=== PATIENT | male | born 1970 | race Two or more races ===

== ENCOUNTER 2019-10-29 10:41 | Emergency (ER) | payer MEDICAID ==
[~2019-10-29] VITALS: Ht 182.9 cm; Wt 95.3 kg
[~2019-10-29 10:41] MED LIST: ATENPOW10; LISIPOW; METF-370
[2019-10-29 10:42] VITALS: BP 123/96
[2019-10-29] MEDS ORDERED: ACETAMINOPHEN 500 MG TAB PO ONE (11:00)
== END 2019-10-29 14:30 | disposition home or self-care (01) ==
LOC: ER 10:41
DX: U07.1 COVID-19 (principal); B34.9 Viral infection, unspecified; J40 Bronchitis, not specified as acute or chronic
CPT/HCPCS: 36415; 71045; 87426; 99284; U0003; 93005

== ENCOUNTER 2019-11-03 22:02 | Inpatient (IN) | payer MEDICAID ==
[~2019-11-03] VITALS: Ht 182.9 cm; Wt 115.0 kg
[2019-11-04] MEDS ORDERED: DexAMETHasone SOD PHOS 10MG/1ML VIAL INJ IV ONE (01:30)
[2019-11-04] MEDS ORDERED: SODIUM CHLORIDE 0.9% 1,000 ML IV ONE (01:30)
[2019-11-04 01:56] LABS: Basophils # (auto) 0 10 ^3/uL (0-0.2); Eosinophils # (auto) 0 10 ^3/uL (0-0.8); Eosinophils % (auto) 0.1 % (0.0-7.0); Hematocrit 41.8 % (41.0-53.0); Hemoglobin 14.8 g/dL (13.5-17.5); Lymphocytes # (auto) 1.7 10 ^3/uL (0.4-5.4); Lymphocytes % (auto) 21.4 % (10.0-50.0); Mean Corpuscular Hemoglobin 30.9 pg (28.0-32.0); Mean Corpuscular Hgb Conc. 35.4 g/dL (32.0-36.0); Mean Corpuscular Volume 87.4 fL (80.0-100.0); Monocytes # (auto) 0.9 10 ^3/uL (0-1.3); Monocytes % (auto) 10.7 % (0.0-12.0); Neutrophils # (auto) 5.5 10 ^3/uL (1.6-8.6); Neutrophils % (auto) 67.8 % (37.0-80.0); Nucleated Red Blood Cells % 0.1 %; Platelet Count (auto) 233 10^3/uL (140-450); Red Blood Cells 4.78 10^6/uL (4.5-5.90); Red Cell Distribution Width 12.7 % (11.8-14.3); White Blood Cell 8.1 10^3/uL (4.4-10.8)
[2019-11-04 02:12] LABS: INR 0.96 (0.9-1.15); Partial Thromboplastin Time 24.8 sec (23.0-31.2)
[2019-11-04 02:14] LABS: Alanine Aminotransferase 47 U/L (16-61); Anion Gap 8 (5-15); Aspartate Aminotransferase 27 U/L (15-37); Blood Urea Nitrogen 18 mg/dL (7-18); Calcium 8.5 mg/dL (8.5-10.1); Carbon Dioxide 25 mmol/L (21-32); Chloride 98 mmol/L (98-107); GFR African American 130 mL/min; GFR Non-African American 107 mL/min; Glucose 199 mg/dL (74-106); Potassium 3.8 mmol/L (3.5-5.1); Sodium 131 mmol/L (136-145)
[2019-11-04 02:19] LABS: Alkaline Phosphatase 62 U/L (45-117); Bilirubin, Total 0.6 mg/dL (0.2-1.0); Total Protein 7.4 g/dL (6.4-8.2)
[2019-11-04] MEDS ORDERED: DOXYCYCLINE 100MG/250ML 250 ML IV ONE (04:00)
[2019-11-04] MEDS ORDERED: ACETAMINOPHEN 500 MG TAB PO PRN (05:45)
[2019-11-04] MEDS ORDERED: HYDROcodone-ACET 5/325MG TAB PO PRN (05:45)
[2019-11-04] MEDS ORDERED: ACETAMINOPHEN 325 MG TAB PO PRN (05:45)
[2019-11-04] MEDS ORDERED: LORazepam 0.5 MG TAB PO PRN (05:45)
[2019-11-04] MEDS ORDERED: ONDANSETRON HCL 4 MG/2 ML VIAL IV PRN (05:45)
[2019-11-04] MEDS ORDERED: MORPHINE SULF INJ 2 MG/ML SYRINGE 1ML IV PRN (05:45)
[2019-11-04] MEDS ORDERED: DOCUSATE SOD 100 MG CAP PO PRN (05:45)
[2019-11-04] MEDS ORDERED: TEMAZEPAM 15 MG CAP PO PRN (05:45)
[2019-11-04 06:08] VITALS: BP 141/85
[2019-11-04] MEDS: SODIUM CHLORIDE 0.9% 1,000 ML IV SCH ×2 (06:26→10:26)
[2019-11-04] MEDS: ALBUTEROL SULF HFA 90MCG INH 200DOSE IN SCH ×3 (07:48→22:21)
--- NOTE | 2019-11-04 07:50 | NUR ---
Admit from ER MARTINEZ,GEOVANI admitted to floor from ER. Patient oriented to MAYRA DIAZ RN primary RN, unit, room, bed, and unit policies regarding patient care and visiting hours. Patient placed on bedside oxygen at 2L, weighed by bedscale and encouraged to call if they need something. All questions and concerns addressed, patient verbalized understanding. Patient VS: 98.0, 68, 20, 95%, 132/81. No complaints of pain or discomfort at this time.
[2019-11-04 09:00] VITALS: BP 132/81
--- NOTE | 2019-11-04 09:14 | NUR ---
ADMISSION ASSESSMENT PATIENT IS ISOLATED IN COVID UNIT. ATTEMPTED TO OBTAIN ADMISSION ASSESSMENT REMOTELY. BEGAN TO SPEAK TO PATIENT ON PORTABLE PHONE AND WAS DISCONNECTED. UNABLE TO REACH PATIENT ON PORTABLE AT THIS TIME. WILL ATTEMPT AGAIN. Addendum: 11/04/19 at 0948 by Jasmyn Jane RN SPOKE WITH PRIMARY CHHAYA NUNEZ AND OBTAINED PATIENTS CELL PHONE NUMBER. ATTEMPTED TO CONTACT PATIENT ON HIS CELL PHONE AT . SENT TO [facility]. LEFT MESSAGE WITH RETURN CONTACT INFORMATION. AWAITING CALL BACK. Addendum: 11/04/19 at 1024 by Jasmyn Jane RN RECEIVED CALL FROM PATIENT. OBTAINED ADMISSION ASSESSMENT FROM PATIENT OVER THE PHONE. PRIMARY CHHAYA NUNEZ NOTIFIED TO COMPLETE ADMISSION.
[2019-11-04] MEDS ORDERED: LISI-646 PO (10:18)
[2019-11-04] MEDS ORDERED: GLIP10TA9 PO (10:18)
[2019-11-04] MEDS ORDERED: ATEN100T PO (10:18)
[2019-11-04] MEDS ORDERED: METF-370 PO (10:18)
[2019-11-04] MEDS: ZINC SULFATE 220mg CAP or TAB PO SCH (10:26)
[2019-11-04] MEDS: DexAMETHasone SOD PHOS 10MG/1ML VIAL INJ IV SCH (10:26)
[2019-11-04] MEDS: ASCORBIC ACID 1,000 MG TAB PO SCH (10:26)
[2019-11-04] MEDS: DOXYCYCLINE 100 MG TAB/CAP PO SCH ×2 (10:26→21:35)
[2019-11-04] MEDS: ENOXAPARIN SOD 40 MG/0.4 ML SYRINGE SC SCH (10:27)
--- NOTE | 2019-11-04 10:40 | NUR ---
Dr Parker bedside with patient discussing plan of care. Orders received and carried out.
[2019-11-04] MEDS ORDERED: DEXTROSE (50%) 50ML SYRG IV PRN (10:45)
[2019-11-04 10:52] LABS: Basophils # (auto) 0 10 ^3/uL (0-0.2); Basophils % (auto) 0.1 % (0.0-2.0); Eosinophils # (auto) 0 10 ^3/uL (0-0.8); Hemoglobin 14.9 g/dL (13.5-17.5); Lymphocytes # (auto) 0.7 10 ^3/uL (0.4-5.4); Lymphocytes % (auto) 10.8 % (10.0-50.0); Mean Corpuscular Hemoglobin 30.7 pg (28.0-32.0); Mean Corpuscular Hgb Conc. 34.7 g/dL (32.0-36.0); Mean Corpuscular Volume 88.6 fL (80.0-100.0); Monocytes # (auto) 0.3 10 ^3/uL (0-1.3); Monocytes % (auto) 4.5 % (0.0-12.0); Neutrophils # (auto) 5.3 10 ^3/uL (1.6-8.6); Neutrophils % (auto) 84.6 % (37.0-80.0); Nucleated Red Blood Cells % 0.1 %; Platelet Count (auto) 236 10^3/uL (140-450); Red Blood Cells 4.85 10^6/uL (4.5-5.90); Red Cell Distribution Width 12.7 % (11.8-14.3); White Blood Cell 6.3 10^3/uL (4.4-10.8)
[2019-11-04 11:11] LABS: Calcium 8.7 mg/dL (8.5-10.1); Magnesium 2.3 mg/dL (1.6-2.6); Potassium 4.3 mmol/L (3.5-5.1)
[2019-11-04 11:14] LABS: BUN/Creatinine Ratio 21.4
[2019-11-04] MEDS: InsuLIN REG 1unit/0.01ml Soln (100units/ml) SC SCH ×3 (11:53→21:36)
[2019-11-04] MEDS: ACCU-CHEK COMFORT CURVE STRIP VI SCH ×3 (11:54→21:28)
--- NOTE | 2019-11-04 11:55 | NUR ---
Patient moved from room 244-7 to room 248A to share room with daughter. help desk supervisor, Yvonne, approved transfer.
[2019-11-04 13:00] VITALS: BP 131/90
[2019-11-04 17:00] VITALS: BP 138/94
--- NOTE | 2019-11-04 19:40 | NUR ---
Opening Shift Note Assumed care of patient, awake and alert. No S/S of distress/SOB or pain. POC discussed and questions answered. Bed is locked in lowest position with side rails up x2 for safety, call light is within reach and encouraged to call for assistance PRN, will continue to monitor for changes Q1hr and PRN.
[2019-11-04 22:00] VITALS: BP 147/95
[2019-11-05] MEDS: SODIUM CHLORIDE 0.9% 1,000 ML IV SCH (04:48)
[2019-11-05 05:00] VITALS: BP 148/97
[2019-11-05] MEDS: glipiZIDE 5 MG TAB PO SCH (06:56)
[2019-11-05] MEDS: ACCU-CHEK COMFORT CURVE STRIP VI SCH ×4 (06:56→21:45)
[2019-11-05] MEDS: InsuLIN REG 1unit/0.01ml Soln (100units/ml) SC SCH ×4 (06:57→21:45)
--- NOTE | 2019-11-05 08:06 | NUR ---
OPENING SHIFT NOTE Assumed care of patient. PT is awake and a&ox4. No SOB or s/s of distress at this time. Instructed on plan of care and encouraged patient to call for assistance as needed, patient verbalized understanding. Bed is locked in lowest position, side rails x 2 are up, call light is within reach, and bed alarm is on.
[2019-11-05] MEDS: ALBUTEROL SULF HFA 90MCG INH 200DOSE IN SCH ×3 (08:27→22:38)
[2019-11-05 09:00] VITALS: BP 143/91
[2019-11-05 09:07] LABS: Basophils # (auto) 0 10 ^3/uL (0-0.2); Eosinophils # (auto) 0 10 ^3/uL (0-0.8); Eosinophils % (auto) 0.1 % (0.0-7.0); Hematocrit 40.7 % (41.0-53.0); Lymphocytes # (auto) 1.4 10 ^3/uL (0.4-5.4); Lymphocytes % (auto) 22.6 % (10.0-50.0); Mean Corpuscular Hemoglobin 30.2 pg (28.0-32.0); Mean Corpuscular Hgb Conc. 34.3 g/dL (32.0-36.0); Monocytes # (auto) 0.5 10 ^3/uL (0-1.3); Neutrophils # (auto) 4.1 10 ^3/uL (1.6-8.6); Neutrophils % (auto) 68.3 % (37.0-80.0); Nucleated Red Blood Cells % 0.1 %; Platelet Count (auto) 264 10^3/uL (140-450); Red Blood Cells 4.62 10^6/uL (4.5-5.90); Red Cell Distribution Width 12.6 % (11.8-14.3)
[2019-11-05 09:34] LABS: Albumin 2.7 g/dL (3.4-5.0); Calcium 8.4 mg/dL (8.5-10.1); Potassium 3.8 mmol/L (3.5-5.1)
[2019-11-05 09:39] LABS: BUN/Creatinine Ratio 22.4; Bilirubin, Total 0.5 mg/dL (0.2-1.0); Total Protein 6.7 g/dL (6.4-8.2)
[2019-11-05] MEDS: ENOXAPARIN SOD 40 MG/0.4 ML SYRINGE SC SCH (11:21)
[2019-11-05] MEDS: ASCORBIC ACID 1,000 MG TAB PO SCH (11:21)
[2019-11-05] MEDS: ZINC SULFATE 220mg CAP or TAB PO SCH (11:21)
[2019-11-05] MEDS: DOXYCYCLINE 100 MG TAB/CAP PO SCH ×2 (11:21→21:26)
[2019-11-05] MEDS: DexAMETHasone SOD PHOS 10MG/1ML VIAL INJ IV SCH (11:22)
[2019-11-05 13:00] VITALS: BP 151/99
[2019-11-05 17:00] VITALS: BP 136/87
--- NOTE | 2019-11-05 19:48 | NUR ---
Opening Shift Note Assumed care of patient, awake and alert. No S/S of distress/SOB or pain. Instructed on POC and to call for assist PRN, will continue to monitor for changes Q1hr and PRN.
[2019-11-05 22:00] VITALS: BP 141/98
--- NOTE | 2019-11-05 22:40 | NUR ---
AT BEDSIDE FOR JACOB DIANE. PT IS [employer], PT STATES HE BELIEVES HIS BLOOD PRESSURE IS HIGH. PT STATED SINCE HE CAME HERE TO THE HOSPITAL HE HAS NOT BEEN TAKING HIS HOME BLOOD PRESSURE MEDS. CHHAYA WOODS COMMUNICATED ON PTS CONCERNS.
--- NOTE | 2019-11-05 23:00 | NUR ---
HOSPITALIST PAGED PATIENT STATES THAT THEY HAVE ELEVATED BP AND NORMALLY TAKE HOME MEDS FOR BP. NO NEW ORDERS RECEIVED AT THIS TIME. WILL CONTINUE TO MONITOR.
--- NOTE | 2019-11-05 23:44 | NUR ---
LATEST BP 147/93. WILL CONTINUE TO MONITOR.
[2019-11-06] MEDS ORDERED: LISINOPRIL 20 MG TAB PO ONE (04:30)
--- NOTE | 2019-11-06 04:38 | NUR ---
BP ELEVATED AT 169/107 ORDERS RECEIVED FROM HOSPITALIST. WILL CONTINUE TO MONITOR.
[2019-11-06 05:00] VITALS: BP 169/107
[2019-11-06] MEDS: InsuLIN REG 1unit/0.01ml Soln (100units/ml) SC SCH ×3 (06:09→16:56)
[2019-11-06 06:23] VITALS: BP 159/103
[2019-11-06] MEDS: glipiZIDE 5 MG TAB PO SCH (06:34)
[2019-11-06] MEDS: ACCU-CHEK COMFORT CURVE STRIP VI SCH ×3 (06:34→16:56)
--- NOTE | 2019-11-06 07:35 | NUR ---
OPENING NOTE ASSUMED CARE OF PT. ALERT AND ORIENTED. NO S/S OF SOB/DISTRESS NOTED. BED SET TO LOWEST POSITION/LOCKED. BEDSIDE RAILS UP X2. CALL LIGHT WITHIN REACH. INSTRUCTED PT TO CALL FOR ASSISTANCE. UPDATED PT ON POC. PT VERBALIZED UNDERSTANDING. WILL CONTINUE TO MONITOR Q1HR AND PRN.
[2019-11-06] MEDS: ALBUTEROL SULF HFA 90MCG INH 200DOSE IN SCH ×2 (07:40→14:52)
[2019-11-06 09:00] VITALS: BP 144/99
[2019-11-06] MEDS: DexAMETHasone SOD PHOS 10MG/1ML VIAL INJ IV SCH (09:13)
[2019-11-06] MEDS: ZINC SULFATE 220mg CAP or TAB PO SCH (09:13)
[2019-11-06] MEDS: DOXYCYCLINE 100 MG TAB/CAP PO SCH (09:14)
[2019-11-06] MEDS: ASCORBIC ACID 1,000 MG TAB PO SCH (09:14)
[2019-11-06] MEDS: ENOXAPARIN SOD 40 MG/0.4 ML SYRINGE SC SCH (09:15)
[2019-11-06] MEDS: SODIUM CHLORIDE 0.9% 1,000 ML IV SCH (09:21)
[2019-11-06] MEDS ORDERED: ATENOLOL 50 MG TAB PO SCH (10:00)
[2019-11-06] MEDS ORDERED: LISINOPRIL 20 MG TAB PO SCH (10:00)
[2019-11-06 13:00] VITALS: BP 150/103
[2019-11-06] MEDS ORDERED: hydrALAZINE HCL 20 MG/ML VL IV PRN (13:30)
[2019-11-06] MEDS ORDERED: hydrALAZINE HCL 20 MG/ML VL IV ONE (13:30)
[2019-11-06] MEDS ORDERED: hydrALAZINE HCL 25 MG TAB PO ONE (14:00)
[2019-11-06] MEDS ORDERED: hydrALAZINE HCL 25 MG TAB PO PRN (14:00)
[2019-11-06] MEDS ORDERED: CHOL400T19 PO (14:44)
[2019-11-06] MEDS ORDERED: ASCO10003 PO (14:44)
[2019-11-06] MEDS ORDERED: ZINCCAP PO ×2 (14:44→14:45)
[2019-11-06] MEDS ORDERED: METH4PAK PO (14:44)
[2019-11-06] MEDS ORDERED: AZIT250T8 PO (14:44)
[2019-11-06] MEDS ORDERED: HYDR-2691 PO (14:44)
[2019-11-06] MEDS ORDERED: DOX100T PO (14:45)
[2019-11-06 16:12] VITALS: BP 150/103
[2019-11-06 17:00] VITALS: BP 118/83
--- NOTE | 2019-11-06 17:35 | NUR ---
Discharge Discharge instructions given as ordered. Encourage to follow up with PMD as instructed. All questions and concerns addressed. Patient verbalized understanding. Prescriptions given to patient. IV removed with catheter intact, pressure dressing applied. Patient walked to vehicle with all personal belongings, accompanied by staff and family member. No distress noted at time of departure.
== END 2019-11-06 17:38 | disposition home or self-care (01) | DRG 137 ==
LOC: ER 22:02 → OVERFLOW 22:03 → TELE-E-ADS 11-04 08:53 → EAST 11-04 11:50
PROVIDERS: ADMIT Hospitalist; ATTEND Internal Medicine
DX: U07.1 COVID-19 (principal); J12.89 Other viral pneumonia; I10 Essential (primary) hypertension; J96.00 Acute respiratory failure, unspecified whether with hypoxia or hypercapnia; E44.0 Moderate protein-calorie malnutrition; F17.210 Nicotine dependence, cigarettes, uncomplicated; E78.5 Hyperlipidemia, unspecified; E11.9 Type 2 diabetes mellitus without complications; Z90.49 Acquired absence of other specified parts of digestive tract; Z68.38 Body mass index [BMI] 38.0-38.9, adult
CPT/HCPCS: 36415; 71045; 80048; 80053; 80061; 82962; 83036; 83605; 83735; 83880; 84484; 85025; 85379; 85610; 85730; 94640; 96361; 96365; 96375; G0378; J1100; J1815; J3490

== ENCOUNTER 2021-06-15 12:36 | Inpatient (IN) | payer MEDICAID ==
[~2021-06-15] VITALS: Ht 182.9 cm; Wt 112.1 kg
[~2021-06-15 12:36] MED LIST changes: +ASCO10003 PO; +ATEN100T PO; -ATENPOW10; +CHOL400T19 PO; +DOX100T PO; +GLIP10TA9 PO; +HYDR25TA87 PO; +LISI20TA28 PO; -LISIPOW; -METF-370; +METF-370 PO; +METH4PAK PO; +ZINCCAP PO
[2021-06-15] MEDS ORDERED: ASPirin 81 mg TAB PO ONE (12:45)
[2021-06-15 13:39] LABS: Urine Bacteria NONE SEEN /hpf (None Seen); Urine Blood Negative /uL (Negative); Urine Specific Gravity 1.033 (1.001-1.035); Urine WBC <1 /hpf (0 - 3)
[2021-06-15 14:00] LABS: Alcohol, Urine < 3.0 mg/dL (0-10); Amphetamine Screen, Urine NEGATIVE (NEGATIVE); Barbiturate Scree,Urine NEGATIVE (NEGATIVE); Benzodiazephine Screen, Urine NEGATIVE (NEGATIVE); Cannabinoid Screen, Urine NEGATIVE (NEGATIVE); Cocaine Screen, Urine NEGATIVE (NEGATIVE); Opiate Scree,Urine NEGATIVE (NEGATIVE); Phencyclidine Screen, Urine NEGATIVE (NEGATIVE)
[2021-06-15 14:08] LABS: Basophils # (auto) 0.1 10 ^3/uL (0-0.2); Basophils % (auto) 0.8 % (0.0-2.0); Eosinophils # (auto) 0.4 10 ^3/uL (0-0.8); Eosinophils % (auto) 4.9 % (0.0-7.0); Hematocrit 46.5 % (41.0-53.0); Hemoglobin 16.3 g/dL (13.5-17.5); Lymphocytes # (auto) 2.8 10 ^3/uL (0.4-5.4); Lymphocytes % (auto) 38.1 % (10.0-50.0); Mean Corpuscular Hemoglobin 31.1 pg (28.0-32.0); Mean Corpuscular Volume 88.8 fL (80.0-100.0); Monocytes # (auto) 0.6 10 ^3/uL (0-1.3); Monocytes % (auto) 8.2 % (0.0-12.0); Neutrophils # (auto) 3.5 10 ^3/uL (1.6-8.6); Nucleated Red Blood Cells % 0.2 %; Red Blood Cells 5.24 10^6/uL (4.5-5.90); Red Cell Distribution Width 12.9 % (11.8-14.3); White Blood Cell 7.3 10^3/uL (4.4-10.8)
[2021-06-15 14:27] LABS: Potassium 4.6 mmol/L (3.5-5.1)
[2021-06-15 14:35] LABS: Albumin 3.7 g/dL (3.4-5.0); BUN/Creatinine Ratio 14.3; Bilirubin, Total 0.3 mg/dL (0.2-1.0); Calcium 9.6 mg/dL (8.5-10.1); Total Protein 7.8 g/dL (6.4-8.2)
[2021-06-15] MEDS ORDERED: DEXTROSE (50%) 50ML SYRG IV PRN (16:30)
[2021-06-15] MEDS ORDERED: NITROGLYCERIN 0.4 MG SL TAB SL PRN (16:30)
[2021-06-15] MEDS ORDERED: MORPHINE SULFATE INJECTION 2 MG/ML SYRG IV PRN ×2 (16:30→21:30)
[2021-06-15] MEDS: ACCU-CHEK COMFORT CURVE STRIP VI SCH ×2 (17:55→22:43)
[2021-06-15] MEDS: InsuLIN REG 1unit/0.01ml Soln (100units/ml) SC SCH ×2 (18:03→22:44)
[2021-06-15] MEDS ORDERED: IOHEXOL 350 MG/ML 100ML IJ ONE ×2 (21:29→21:30)
[2021-06-15] MEDS ORDERED: ONDANSETRON HCL 4 MG/2 ML VIAL IV PRN (21:30)
[2021-06-15] MEDS ORDERED: SODIUM CHLORIDE 0.9% 1,000 ML IV SCH (21:30)
[2021-06-15] MEDS ORDERED: hydrALAZINE HCL 20 MG/ML VL IV PRN (21:30)
[2021-06-15] MEDS ORDERED: FAMOTIDINE (10MG/ML) 2ML VL IV ONE (21:30)
[2021-06-15] MEDS ORDERED: LORazepam 0.5 MG TAB PO PRN (21:30)
[2021-06-15] MEDS ORDERED: ACETAMINOPHEN 325 MG TAB PO PRN (21:30)
[2021-06-15] MEDS ORDERED: BENAZEPRIL HCL 10 MG TAB PO ONE (21:30)
[2021-06-15] MEDS ORDERED: HYDROcodone-ACET 5/325MG TAB PO ONE (21:30)
[2021-06-15] MEDS ORDERED: IPRATROPIUM BROM 0.5 MG/2.5ML INH SOL NEB ONE (21:30)
[2021-06-15] MEDS ORDERED: LACTULOSE 20Gm/30ML SOLN PO PRN (21:30)
[2021-06-15] MEDS ORDERED: HYDROcodone-ACET 5/325MG TAB PO PRN (21:30)
[2021-06-15] MEDS ORDERED: DOCUSATE SOD 100 MG CAP PO PRN (21:30)
[2021-06-15 22:30] VITALS: BP 126/87
[2021-06-15] MEDS: ATORVASTATIN 20 MG TAB PO SCH (22:42)
[2021-06-15 22:44] LABS: Magnesium 1.7 mg/dL (1.6-2.6); Phosphorus 3.6 mg/dL (2.5-4.90)
[2021-06-15] MEDS: INSULIN LANTUS (GLARGINE) 1 /0.01ml (100units/ml) SC SCH (22:45)
[2021-06-15 23:14] LABS: INR 0.99 (0.9-1.15); Partial Thromboplastin Time 23.9 sec (23.6-33.0)
[2021-06-16] MEDS ORDERED: IPRATROPIUM BROM 0.5 MG/2.5ML INH SOL NEB SCH (02:00)
[2021-06-16] MEDS ORDERED: IPRATROPIUM BROM 0.5 MG/2.5ML INH SOL NEB PRN (02:00)
[2021-06-16 05:45] LABS: Basophils # (auto) 0.1 10 ^3/uL (0-0.2); Basophils % (auto) 0.8 % (0.0-2.0); Eosinophils # (auto) 0.4 10 ^3/uL (0-0.8); Eosinophils % (auto) 5.6 % (0.0-7.0); Hematocrit 42.4 % (41.0-53.0); Lymphocytes # (auto) 3.2 10 ^3/uL (0.4-5.4); Lymphocytes % (auto) 45.8 % (10.0-50.0); Mean Corpuscular Hemoglobin 31.3 pg (28.0-32.0); Mean Corpuscular Hgb Conc. 35.3 g/dL (32.0-36.0); Mean Corpuscular Volume 88.7 fL (80.0-100.0); Monocytes # (auto) 0.6 10 ^3/uL (0-1.3); Monocytes % (auto) 8.9 % (0.0-12.0); Neutrophils # (auto) 2.7 10 ^3/uL (1.6-8.6); Neutrophils % (auto) 38.9 % (37.0-80.0); Nucleated Red Blood Cells % 0.1 %; Red Blood Cells 4.78 10^6/uL (4.5-5.90); Red Cell Distribution Width 12.9 % (11.8-14.3)
[2021-06-16 05:54] LABS: INR 0.99 (0.9-1.15); Partial Thromboplastin Time 24.1 sec (23.6-33.0)
[2021-06-16 05:55] LABS: Magnesium 1.8 mg/dL (1.6-2.6)
[2021-06-16 06:03] LABS: Albumin 3.2 g/dL (3.4-5.0); BUN/Creatinine Ratio 18.9; Bilirubin, Total 0.4 mg/dL (0.2-1.0); CRP High Sensitivity 0.06 mg/dL (< 0.3); Calcium 8.9 mg/dL (8.5-10.1); Phosphorus 3.8 mg/dL (2.5-4.90); Uric Acid 5.6 mg/dL (3.5-7.2)
[2021-06-16 06:07] LABS: Thyroid Stimulating Hormone 1.59 uIU/mL (0.358-3.74)
[2021-06-16] MEDS: InsuLIN REG 1unit/0.01ml Soln (100units/ml) SC SCH ×4 (06:46→22:43)
[2021-06-16] MEDS: ACCU-CHEK COMFORT CURVE STRIP VI SCH ×4 (06:48→22:42)
[2021-06-16] MEDS: INSULIN LANTUS (GLARGINE) 1 /0.01ml (100units/ml) SC SCH ×2 (06:48→22:42)
[2021-06-16] MEDS: ENOXAPARIN SOD 40 MG/0.4 ML SYRINGE SC SCH (11:24)
[2021-06-16] MEDS: ASPirin 81 mg TAB PO SCH (11:24)
[2021-06-16] MEDS: FAMOTIDINE (10MG/ML) 2ML VL IV SCH (11:24)
[2021-06-16] MEDS: BENAZEPRIL HCL 10 MG TAB PO SCH (11:25)
[2021-06-16 13:51] VITALS: BP 123/92
[2021-06-16 14:00] VITALS: BP 133/95
[2021-06-16 16:47] VITALS: BP 133/95
[2021-06-16] MEDS ORDERED: AMOX500C2 PO (20:53)
[2021-06-16 22:00] VITALS: BP 139/99
[2021-06-16] MEDS: ATORVASTATIN 20 MG TAB PO SCH (22:41)
[2021-06-17 05:00] VITALS: BP 140/99
[2021-06-17] MEDS: ACCU-CHEK COMFORT CURVE STRIP VI SCH ×3 (06:34→16:51)
[2021-06-17] MEDS: InsuLIN REG 1unit/0.01ml Soln (100units/ml) SC SCH ×3 (06:35→17:10)
[2021-06-17] MEDS: INSULIN LANTUS (GLARGINE) 1 /0.01ml (100units/ml) SC SCH (06:35)
[2021-06-17 09:00] VITALS: BP 129/94
[2021-06-17 09:01] VITALS: BP 159/113
[2021-06-17] MEDS: FAMOTIDINE (10MG/ML) 2ML VL IV SCH (10:26)
[2021-06-17] MEDS: ASPirin 81 mg TAB PO SCH (10:26)
[2021-06-17] MEDS: ENOXAPARIN SOD 40 MG/0.4 ML SYRINGE SC SCH (10:26)
[2021-06-17] MEDS: BENAZEPRIL HCL 10 MG TAB PO SCH (10:26)
[2021-06-17 13:33] VITALS: BP 123/73
[2021-06-17] MEDS ORDERED: METF-370 PO (15:59)
[2021-06-17] MEDS ORDERED: ATOR20TA50 PO (15:59)
[2021-06-17] MEDS ORDERED: GLIP10TA9 PO (15:59)
[2021-06-17] MEDS ORDERED: LISI20TA28 PO (15:59)
[2021-06-17] MEDS ORDERED: ASPI1CHW15 PO (15:59)
[2021-06-17 17:00] VITALS: BP 143/92
== END 2021-06-17 18:21 | disposition home or self-care (01) | DRG 203 ==
LOC: ER 12:36 → TELE 16:27 → TELE-EAST 06-16 10:22
PROVIDERS: ADMIT Hospitalist; ATTEND Internal Medicine
DX: R07.9 Chest pain, unspecified (principal); U09.9 Post COVID-19 condition, unspecified; E11.65 Type 2 diabetes mellitus with hyperglycemia; E66.01 Morbid (severe) obesity due to excess calories; E78.5 Hyperlipidemia, unspecified; F17.210 Nicotine dependence, cigarettes, uncomplicated; F41.9 Anxiety disorder, unspecified; I10 Essential (primary) hypertension; Z79.84 Long term (current) use of oral hypoglycemic drugs; Z82.49 Family history of ischemic heart disease and other diseases of the circulatory system; Z87.01 Personal history of pneumonia (recurrent); Z68.33 Body mass index [BMI] 33.0-33.9, adult; Z83.3 Family history of diabetes mellitus; Z79.899 Other long term (current) drug therapy; Z90.49 Acquired absence of other specified parts of digestive tract
CPT/HCPCS: 36415; 71046; 71275; 78452; 80053; 80061; 80307; 81001; 82550; 82728; 82962; 83036; 83615; 83690; 83735; 83880; 84100; 84443; 84484; 84550; 85025; 85379; 85610; 85652; 85730; 86141; 87040; 87086; 93005; 93017; 93306; 93970; 96361; 96374; G0378; J1815; J3490

== ENCOUNTER 2021-09-21 07:00 | Emergency (ER) | payer MEDICAID ==
[~2021-09-21] VITALS: Ht 182.9 cm; Wt 113.4 kg
[~2021-09-21 07:00] MED LIST changes: -ASCO10003 PO; +ASPI1CHW15 PO; +ATOR20TA50 PO; -CHOL400T19 PO; -DOX100T PO; -HYDR25TA87 PO; -METH4PAK PO; -ZINCCAP PO
[2021-09-21 08:00] LABS: Basophils # (auto) 0.1 10 ^3/uL (0-0.2); Eosinophils # (auto) 0.4 10 ^3/uL (0-0.8); Eosinophils % (auto) 5.3 % (0.0-7.0); Hematocrit 45.4 % (41.0-53.0); Hemoglobin 15.9 g/dL (13.5-17.5); Lymphocytes # (auto) 3.2 10 ^3/uL (0.4-5.4); Lymphocytes % (auto) 37.9 % (10.0-50.0); Mean Corpuscular Hemoglobin 31.1 pg (28.0-32.0); Mean Corpuscular Volume 88.7 fL (80.0-100.0); Monocytes # (auto) 0.7 10 ^3/uL (0-1.3); Monocytes % (auto) 8.8 % (0.0-12.0); Neutrophils # (auto) 3.9 10 ^3/uL (1.6-8.6); Nucleated Red Blood Cells % 0.1 %; Red Blood Cells 5.12 10^6/uL (4.5-5.90); Red Cell Distribution Width 13.2 % (11.8-14.3); White Blood Cell 8.3 10^3/uL (4.4-10.8)
[2021-09-21 08:18] LABS: Albumin 3.7 g/dL (3.4-5.0); BUN/Creatinine Ratio 15.6; Calcium 9.2 mg/dL (8.5-10.1); Potassium 4.5 mmol/L (3.5-5.1)
[2021-09-21 08:29] LABS: Bilirubin, Total 0.3 mg/dL (0.2-1.0); Total Protein 7.8 g/dL (6.4-8.2)
[2021-09-21 12:32] VITALS: BP 132/89
[2021-09-21 13:21] LABS: Urine Bacteria NONE SEEN /hpf (None Seen); Urine Blood Negative /uL (Negative); Urine Specific Gravity 1.031 (1.001-1.035); Urine WBC <1 /hpf (0 - 3)
== END 2021-09-21 12:33 | disposition home or self-care (01) ==
LOC: ER 07:00
DX: R10.13 Epigastric pain (principal); R10.33 Periumbilical pain; I10 Essential (primary) hypertension; E11.9 Type 2 diabetes mellitus without complications; F17.210 Nicotine dependence, cigarettes, uncomplicated; Z90.49 Acquired absence of other specified parts of digestive tract; Z79.82 Long term (current) use of aspirin; Z90.89 Acquired absence of other organs; Z79.899 Other long term (current) drug therapy
CPT/HCPCS: 36415; 74176; 80053; 81001; 83690; 84484; 85025